=== PATIENT | female | born 1995 | race Caucasian/White ===

== ENCOUNTER → 2017-12-10 | Outpatient (CLI) | payer OTHER ==
[~2017-12-10] MED LIST: ANTOXYBENA RIGHTEAR; AZIT250 PO; DIPH50 PO; FAMO40 PO; METPRE4DP PO; Pseudoephedrine30 MG PO
== END | disposition home or self-care (01) ==
LOC: PLD 14:29 → LAB SHORT 14:29
DX: D22.4 Melanocytic nevi of scalp and neck (principal); D22.5 Melanocytic nevi of trunk
CPT/HCPCS: 88305

== ENCOUNTER → 2018-01-23 | Outpatient (CLI) | payer OTHER | END | disposition home or self-care (01) | LOC: LAB SHORT 09:10 → LAB EV 09:10 | DX: J02.9 Acute pharyngitis, unspecified (principal) | CPT/HCPCS: 87070; 87077; 87185 ==

== ENCOUNTER 2019-04-26 11:46 | Emergency (ER) | payer OTHER ==
[~2019-04-26] VITALS: Ht 165.1 cm; Wt 61.2 kg
[2019-04-26] MEDS ORDERED: Pepcid20 MG PO (13:46)
[2019-04-26] MEDS ORDERED: Prednisone20 MG PO (13:46)
[2019-04-26] MEDS ORDERED: Benadryl 50 mg50 MG PO (13:46)
== END 2019-04-26 13:52 | disposition home or self-care (01) ==
LOC: ER 11:46
DX: T78.01XA Anaphylactic reaction due to peanuts, initial encounter (principal); Z91.013 Allergy to seafood; Z91.010 Allergy to peanuts; Z88.1 Allergy status to other antibiotic agents; J45.909 Unspecified asthma, uncomplicated
CPT/HCPCS: 96361; 96374; 96375; 99283-25; J1200; J2930; J7030

== ENCOUNTER → 2020-11-18 | Outpatient (CLI) | payer OTHER ==
[~2020-11-18] MED LIST changes: +Benadryl 50 mg50 MG PO; +Pepcid20 MG PO; +Prednisone20 MG PO
[2020-11-19 13:14] LABS: Candida species (DNA Probe) Positive (NEGATIVE); G. vaginalis (DNA Probe) Positive (NEGATIVE); T. vaginalis (DNA Probe) Negative (NEGATIVE)
[2020-11-21 00:08] LABS: CHLAMYDIA TRACHOMATIS, NAA Negative (Negative)
== END | disposition home or self-care (01) ==
LOC: LAB 13:28 → LAB SHORT 13:28
PROVIDERS: Family Medicine
DX: Z20.2 Contact with and (suspected) exposure to infections with a predominantly sexual mode of transmission (principal)
CPT/HCPCS: 87480; 87491; 87510; 87591; 87660

== ENCOUNTER → 2020-12-19 | Outpatient (CLI) | payer OTHER | LOC: LAB SHORT 12:01 → LAB 12:01 | DX: D48.5 Neoplasm of uncertain behavior of skin (principal); D22.62 Melanocytic nevi of left upper limb, including shoulder | CPT/HCPCS: 88305 ==

== ENCOUNTER 2021-06-27 16:45 | Emergency (ER) | payer BC ==
[~2021-06-27] VITALS: Ht 165.1 cm; Wt 63.5 kg
[2021-06-27] MEDS ORDERED: EPIPEN0.3 MG/0.3 IM (19:19)
== END 2021-06-27 19:30 | disposition home or self-care (01) ==
LOC: ER 16:45
DX: T78.1XXA Other adverse food reactions, not elsewhere classified, initial encounter (principal)
CPT/HCPCS: 36415; 96374; 96375; 99283-25; J1200; J2405; J2550; J2930; J7120

== ENCOUNTER → 2021-07-13 | Outpatient (CLI) | payer BC ==
[~2021-07-13] MED LIST changes: +EPIPEN0.3 MG/0.3 IM
[2021-07-19 16:10] LABS: HPV 16 Negative (Negative); HPV 18 Negative (Negative); HPV OTHER HR TYPES Negative (Negative)
== END | disposition home or self-care (01) ==
LOC: LAB SHORT 10:30
PROVIDERS: Nurse Practitioner Family
DX: Z01.419 Encounter for gynecological examination (general) (routine) without abnormal findings (principal)
CPT/HCPCS: 87624; G0123